=== PATIENT | female | born 1975 | race Caucasian/White ===

== ENCOUNTER 2016-11-20 | Emergency (ER) | payer SELFPAY ==
--- NOTE | 2016-11-20 14:19 | ED ---
General Adult HPI - General Chief complaint: Recheck/Abnormal Lab/Rx Stated complaint: Med Refill Time Seen by Provider: 11/20/16 13:18 Source: patient, RN notes reviewed Mode of arrival: ambulatory Limitations: no limitations - History of Present Illness Initial comments: This is a 41-year-old female who presents for refills of her Depakote and Seroquel. Patient states she follows up with her physician on 11/22/2016 but is going to run out before this appointment. Patient did not contact the office. Patient takes these medications for bipolar disorder. Patient denies any physical symptoms. Patient denies any recent fever, chills, shortness breath , chest pain, abdominal pain, nausea/vomiting/diarrhea, back pain, numbness, tingling, hematuria, headache, or visual changes, or any other complaints. - Related Data Home Medications Medication Instructions Recorded Confirmed Divalproex [Depakote] 250 mg PO QAM 11/20/16 11/20/16 Divalproex [Depakote] 500 mg PO HS 11/20/16 11/20/16 QUEtiapine FUMARATE [SEROquel] 300 mg PO HS 11/20/16 11/20/16 Allergies Allergy/AdvReac Type Severity Reaction Status Date / Time No Known Allergies Allergy Verified 11/20/16 13:28 Review of Systems ROS Statement: Those systems with pertinent positive or pertinent negative responses have been documented in the HPI. ROS Other: All systems not noted in ROS Statement are negative. Past Medical History Past Medical History: No Reported History History of Any Multi-Drug Resistant Organisms: None Reported Past Surgical History: Tonsillectomy Past Psychological History: Bipolar Smoking Status: Never smoker Past Alcohol Use History: None Reported Past Drug Use History: None Reported General Exam - General Exam Comments Initial Comments: General: The patient is awake and alert, in no distress, and does not appear acutely ill. Eye: Pupils are equal, round and reactive to light, extra-ocular movements are intact. No nystagmus. There is normal conjunctiva bilaterally. No signs of icterus. Mouth and throat: There are moist mucous membranes and no oral lesions. Neck: The neck is supple, there is no tenderness or JVD. Cardiovascular: There is a regular rate and rhythm. No murmur, rub or gallop is appreciated. Respiratory: Lungs are clear to auscultation, respirations are non-labored, breath sounds are equal. No wheezes, stridor, rales, or rhonchi. Musculoskeletal: Normal ROM, no tenderness. Strength 5/5. Sensation intact. Radial pulses equal bilaterally 2+. Neurological: A&O x 3. CN II-XII intact, There are no obvious motor or sensory deficits. Coordination appears grossly intact. Speech is normal. Skin: Skin is warm and dry and no rashes or lesions are noted. Psychiatric: Cooperative, appropriate mood & affect, normal judgment. Limitations: no limitations Course Vital Signs 11/20/16 13:03 Temperature 99.3 F Pulse Rate 100 Respiratory 18 Rate Blood Pressure 143/65 O2 Sat by Pulse 98 Oximetry Medical Decision Making - Medical Decision Making This is a 41-year-old female who presents for refills of Depakote and Seroquel. Patient states she follows up with her primary physician on Friday for this but she was afraid to run out of medication before this appointment. Patient did not call the office. I spoke with Dr. Troy's medical historian, [place], who states they have no problem refilling these medications for her today. The medical historian from Dr. Troy's office put in for refills of these medications today and patient is to continue follow-up with her doctor on 2016. I reported this information to the patient stating the continued importance of follow-up with her physician this Friday. Patient was receptive to this plan and patient will be discharged home. Disposition Clinical Impression: Medication refill Disposition: HOME SELF-CARE Condition: Good Instructions: Valproic Acid (By mouth) Additional Instructions: Your medications have been refilled by your doctor's office. Please continue follow-up with your doctor on 11/22/2016. Return to the [facility] for any worsening symptoms or for any further concerns. Time of Disposition: 14:19
== END 2016-11-20 14:30 | disposition home or self-care (01) ==
CPT/HCPCS: 99281

== ENCOUNTER 2020-01-10 12:22 | Emergency (ER) | payer MEDICAID ==
[2020-01-10 12:43] VITALS: TEMP 98.2
[2020-01-10] MEDS ORDERED: SODIUM CHLORIDE 0.9% 1,000 ML IV STA ×3 (13:13→14:19)
[2020-01-10 13:32] LABS: Basophils # (A) 0.1 k/uL (0-0.2); Basophils % (A) 1 %; Eosinophils # (A) 0.2 k/uL (0-0.7); Eosinophils % (A) 3 %; HGB 9.9 gm/dL (11.4-16.0); Lymphocytes # (A) 1.7 k/uL (1.0-4.8); Lymphocytes % (A) 29 %; MCH 29.6 pg (25.0-35.0); MCHC 32.9 g/dL (31.0-37.0); MCV 89.9 fL (80.0-100.0); Mean Platelet Volume 8.9; Monocytes # (A) 0.2 k/uL (0-1.0); Monocytes % (A) 3 %; Neutrophils # (A) 3.7 k/uL (1.3-7.7); Neutrophils % (A) 62 %; Platelet Count 203 k/uL (150-450); RBC 3.34 m/uL (3.80-5.40)
[2020-01-10 13:38] LABS: ALT 38 U/L (4-34); AST 39 U/L (14-36); African American GFR (CKD) >90 (>60 ml/min/1.73 sqM); Albumin 4.2 g/dL (3.5-5.0); Alkaline Phosphatase 39 U/L (38-126); Anion Gap 10 mmol/L; Blood Urea Nitrogen 11 mg/dL (7-17); Calcium 9.4 mg/dL (8.4-10.2); Carbon Dioxide 26 mmol/L (22-30); Chloride 101 mmol/L (98-107); Glucose 147 mg/dL (74-99); Non-African American GFR(CKD) >90 (>60 ml/min/1.73 sqM); Potassium 4.2 mmol/L (3.5-5.1); Sodium 137 mmol/L (137-145); Total Bilirubin 0.1 mg/dL (0.2-1.3); Total Protein 6.6 g/dL (6.3-8.2)
[2020-01-10 13:44] LABS: Appearance,Urine Clear (Clear); Bilirubin,Urine Negative (Negative); Blood,Urine Moderate (Negative); Color,Urine Colorless; Glucose,Urine (UA) Negative (Negative); Ketones,Urine Negative (Negative); Leukocyte Esterase,Urine Negative (Negative); Nitrite,Urine Negative (Negative); PH, Urine 5.5 (5.0-8.0); Protein,Urine Negative (Negative); RBC,Urine <1 /hpf (0-5); Specific Gravity,Urine 1.003 (1.001-1.035); Urobilinogen,Urine <2.0 mg/dL (<2.0); WBC,Urine <1 /hpf (0-5)
--- NOTE | 2020-01-10 14:21 | ED ---
General Adult HPI - General Chief complaint: Dizziness Stated complaint: lightheaded/muscle aches/heavy vag bleeding-clots Time Seen by Provider: 01/10/20 13:08 Source: patient Mode of arrival: ambulatory Limitations: no limitations - History of Present Illness Initial comments: This 44-year-old white female presents with a complaint of some dizziness which is described as a lightheadedness and will occur when she sits or stands. She states that she has had some heavy vaginal bleeding for the past 11 days. It initially was just a moderate but over the last 1-2 days fairly severe and she was passing large clots. She has had some minimal midline lower abdominal pain. She states that she has had irregular periods in the past. She is going thro [facility] early menopause. She states that her periods oftentimes will be fairly severe. She does also have a history of anemia. She follows up with OB but has not seen them recently. She has not had a pelvic ultrasound and a long time. She denies any fevers, chills, nausea, vomiting, or diarrhea. No other complaints or modifying factors. - Related Data Home Medications Medication Instructions Recorded Confirmed Divalproex [Depakote] 250 mg PO QA 11/20/16 11/20/16 Divalproex [Depakote] 500 mg PO HS 11/20/16 11/20/16 QUEtiapine FUMARATE [SEROquel] 300 mg PO HS 11/20/16 11/20/16 Allergies Allergy/AdvReac Type Severity Reaction Status Date / Time No Known Allergies Allergy Verified 01/10/20 12:43 Review of Systems ROS Statement: Those systems with pertinent positive or pertinent negative responses have been documented in the HPI. ROS Other: All systems not noted in ROS Statement are negative. Past Medical History Past Medical History: No Reported History Additional Past Medical History / Comment(s): anemia History of Any Multi-Drug Resistant Organisms: None Reported Past Surgical History: Tonsillectomy Past Psychological History: Bipolar Smoking Status: Never smoker Past Alcohol Use History: None Reported Past Drug Use History: None Reported General Exam - General Exam Comments Initial Comments: GENERAL: The patient is well nourished and well hydrated. VITAL SIGNS: Heart rate, blood pressure, respiratory rate reviewed as recorded in nurse's notes. EYES: Pupils are round and reactive. Extraocular movements are intact. No conjunctival / lid redness or swelling. ENT: No external evidence of injury, swelling, or ecchymosis. Airway is patent. Throat is clear. NECK: Nontender. No swelling or evidence of injury. No subcutaneous emphysema. Trachea is midline. No thyroid mass. HEART: Regular rate and rhythm. Good peripheral pulses. LUNGS/CHEST: Breath sounds clear and equal bilaterally. No rales, rhonchi, or wheezes. No ecchymosis, subcutaneous emphysema, or tenderness. ABDOMEN: There is mild tenderness to the midline lower abdomen. No palpable masses or organomegaly. No peritoneal signs. No abdominal wall swelling or ecchymosis. EXTREMITIES: No extremity tenderness. Normal muscle tone and function. No thoracolumbar tenderness. NEUROLOGIC: Sensation is grossly intact. Cranial nerve exam reveals face is symmetrical, tongue is midline, speech is clear. SKIN: No abrasions or ecchymosis is noted. No induration or masses noted. PSYCHIATRIC: Alert and oriented. Appropriate behavior and judgment. Limitations: no limitations Course Vital Signs 01/10/20 12:40 Temperature 98.2 F Pulse Rate 107 H Respiratory 20 Rate Blood Pressure 130/66 O2 Sat by Pulse 100 Oximetry Medical Decision Making - Medical Decision Making The patient was seen and examined. She was thoroughly hydrated. The blood work did show that the patient has an anemia with a hemoglobin of 9.9. She was 12.9 approximately one year ago. The remainder of labs looked decent. She had an ultrasound of the pelvis and this does show some nabothian cysts otherwise no acute significant process is identified. She likely is symptomatic from her vaginal bleeding. She is requesting a work note. 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 It is felt as though that is reasonable. It is also felt as though she stable for discharge. Return parameters are discussed. OB follow-up is recommended. She states that she was recently given the number of an OB that she is going to schedule an appointment with. She is instructed to avoid aspirin but may take Motrin or Tylenol if needed for her minor lower abdominal cramping. It appears that yesterday was the worst day of bleeding but today it is much better. It seems as though she is improving and she should physiologically be able to improve her hemoglobin without any intervention at this point. - Lab Data Result diagrams: 01/10/20 13:14 01/10/20 13:14 Lab Results 01/10/20 01/10/20 01/10/20 Range/Units 13:14 13:14 13:14 WBC 6.0 (3.8-10.6) k/uL RBC 3.34 L (3.80-5.40) m/uL Hgb 9.9 L (11.4-16.0) gm/dL Hct 30.0 L (34.0-46.0) % MCV 89.9 (80.0-100.0) fL MCH 29.6 (25.0-35.0) pg MCHC 32.9 (31.0-37.0) g/dL RDW 14.0 (11.5-15.5) % Plt Count 203 (150-450) k/uL Neutrophils % 62 % Lymphocytes % 29 % Monocytes % 3 % Eosinophils % 3 % Basophils % 1 % Neutrophils # 3.7 (1.3-7.7) k/uL Lymphocytes # 1.7 (1.0-4.8) k/uL Monocytes # 0.2 (0-1.0) k/uL Eosinophils # 0.2 (0-0.7) k/uL Basophils # 0.1 (0-0.2) k/uL Sodium 137 (137-145) mmol/L Potassium 4.2 (3.5-5.1) mmol/L Chloride 101 (98-107) mmol/L Carbon Dioxide 26 (22-30) mmol/L Anion Gap 10 mmol/L BUN 11 (7-17) mg/dL Creatinine 0.64 (0.52-1.04) mg/dL Est GFR (CKD-EPI)AfAm >90 (>60 ml/min/1.73 sqM) Est GFR (CKD-EPI)NonAf >90 (>60 ml/min/1.73 sqM) Glucose 147 H (74-99) mg/dL Calcium 9.4 (8.4-10.2) mg/dL Total Bilirubin 0.1 L (0.2-1.3) mg/dL AST 39 H (14-36) U/L ALT 38 H (4-34) U/L Alkaline Phosphatase 39 (38-126) U/L Total Protein 6.6 (6.3-8.2) g/dL Albumin 4.2 (3.5-5.0) g/dL Urine Color Urine Appearance (Clear) Urine pH (5.0-8.0) Ur Specific [place] (1.001-1.035) Urine Protein (Negative) Urine Glucose (UA) (Negative) Urine Ketones (Negative) Urine Blood (Negative) Urine Nitrite (Negative) Urine Bilirubin (Negative) Urine Urobilinogen (<2.0) mg/dL Ur Leukocyte Esterase (Negative) Urine RBC (0-5) /hpf Urine WBC (0-5) /hpf Blood Type A Positive Blood Type Recheck No Previous Record Bld Type Recheck Status CABO Indicated Antibody Screen NEGATIVE Spec Expiration Date 01/13/2020 - 231301/10/20 Range/Units 13:34 WBC (3.8-10.6) k/uL RBC (3.80-5.40) m/uL Hgb (11.4-16.0) gm/dL Hct (34.0-46.0) % MCV (80.0-100.0) fL MCH (25.0-35.0) pg MCHC (31.0-37.0) g/dL RDW (11.5-15.5) % Plt Count (150-450) k/uL Neutrophils % % Lymphocytes % % Monocytes % % Eosinophils % % Basophils % % Neutrophils # (1.3-7.7) k/uL Lymphocytes # (1.0-4.8) k/uL Monocytes # (0-1.0) k/uL Eosinophils # (0-0.7) k/uL Basophils # (0-0.2) k/uL Sodium (137-145) mmol/L Potassium (3.5-5.1) mmol/L Chloride (98-107) mmol/L Carbon Dioxide (22-30) mmol/L Anion Gap mmol/L BUN (7-17) mg/dL Creatinine (0.52-1.04) mg/dL Est GFR (CKD-EPI)AfAm (>60 ml/min/1.73 sqM) Est GFR (CKD-EPI)NonAf (>60 ml/min/1.73 sqM) Glucose (74-99) mg/dL Calcium (8.4-10.2) mg/dL Total Bilirubin (0.2-1.3) mg/dL AST (14-36) U/L ALT (4-34) U/L Alkaline Phosphatase (38-126) U/L Total Protein (6.3-8.2) g/dL Albumin (3.5-5.0) g/dL Urine Color Colorless Urine Appearance Clear (Clear) Urine pH 5.5 (5.0-8.0) Ur Specific [place] 1.003 (1.001-1.035) Urine Protein Negative (Negative) Urine Glucose (UA) Negative (Negative) Urine Ketones Negative (Negative) Urine Blood Moderate H (Negative) Urine Nitrite Negative (Negative) Urine Bilirubin Negative (Negative) Urine Urobilinogen <2.0 (<2.0) mg/dL Ur Leukocyte Esterase Negative (Negative) Urine RBC <1 (0-5) /hpf Urine WBC <1 (0-5) /hpf Blood Type Blood Type Recheck Bld Type Recheck Status Antibody Screen Spec Expiration Date Disposition Clinical Impression: Vaginal bleeding, Abdominal pain, Lightheadedness, Anemia, Nabothian cyst Disposition: HOME SELF-CARE Condition: Good Instructions (If sedation given, give patient instructions): Abdominal Pain (ED), Anemia (ED), Dysfunctional Uterine Bleeding (ED) Is patient prescribed a controlled substance at d/c from ED?: No Referrals: Donal Santiago DO [Primary Care Provider] - 1-2 days Time of Disposition: 15:13
[2020-01-10] MEDS ORDERED: KETOROLAC 30 MG/ML 1 ML VIAL IVP STA (14:22)
--- NOTE | 2020-01-10 14:33 | US ---
EXAMINATION TYPE: US transvaginal DATE OF EXAM: 01/10/2020 COMPARISON: NONE CLINICAL HISTORY: vag bleed and pelvic pain. Early menopause per patient; heavy vaginal bleeding with clots x 2 days TECHNIQUE: Transvaginal (TV). Transvaginal sonographic images were medically necessary to better ass ess the following anatomy: endometrium as patient's bladder no full Date of LMP: 12/30/2019 EXAM MEASUREMENTS: Uterus: 8.9 x 6.3 x 4.5 cm Endometrial Stripe: 1.2 cm Right Ovary: 3.7 x 2.6 x 2.7 cm Left Ovary: not seen 1. Uterus: Anteverted; multiple Nabothian Cysts in cervix with largest cyst = 1.4 x 1.2 x 1.1cm 2. Endometrium: Nonenlarged for a premenopausal female. 3. Right Ovary: small follicle seen = 0.8 x 0.8 x 0.6cm 4. Left Ovary: not seen Spectral, color and waveform doppler imaging shows good arterial and venous flow within the right o vary; there is no evidence for ovarian torsion. 5. Bilateral Adnexa: wnl 6. Posterior cul-de-sac: small amount of free fluid noted = 2.5 x 4.4 x 1.2cm. IMPRESSION: 1. Endometrial thickness is nonenlarged for a premenopausal female although would be enlarged for a p ostmenopausal female. 2. Small amount of free fluid in posterior cul-de-sac is likely physiologic in nature.
[2020-01-10 15:25] VITALS: BP 137/81; PULSE 86; RESP 16
== END 2020-01-10 15:24 | disposition home or self-care (01) ==
LOC: EC 12:22
DX: R42 Dizziness and giddiness (principal); D64.9 Anemia, unspecified; R10.30 Lower abdominal pain, unspecified; N88.8 Other specified noninflammatory disorders of cervix uteri; F31.9 Bipolar disorder, unspecified; Z79.899 Other long term (current) drug therapy
CPT/HCPCS: 36415; 86900; 86901; 80053; 85025; 86850; 81001; 84703; 76830; 99284; 96374; 96361 ×2; J1885

== ENCOUNTER → 2020-06-15 | Outpatient (CLI) | payer MEDICAID ==
[2020-06-15 14:54] LABS: HCT 37.7 % (34.0-46.0); Hypochromasia Slight; MCH 28.2 pg (25.0-35.0); MCHC 31.7 g/dL (31.0-37.0); MCV 88.9 fL (80.0-100.0); Mean Platelet Volume 8.8; Platelet Count 212 k/uL (150-450); RBC 4.24 m/uL (3.80-5.40); RDW 15.4 % (11.5-15.5); WBC 6.9 k/uL (3.8-10.6)
[2020-06-15 19:50] LABS: T4, Free (Free Thyroxine) 0.9 ng/dL (0.80-1.80)
== END | disposition home or self-care (01) ==
LOC: LABWHC1 14:14
PROVIDERS: ATTEND Obstetrics & Gynecology
DX: D64.9 Anemia, unspecified (principal); N92.0 Excessive and frequent menstruation with regular cycle
CPT/HCPCS: 36415; 83001; 84439; 84443; 85027

== ENCOUNTER → 2020-10-04 | Outpatient (CLI) | payer OTHER ==
--- NOTE | 2020-10-04 10:29 | XR ---
EXAMINATION TYPE: XR knee complete RT DATE OF EXAM: 10/04/2020 COMPARISON: NONE HISTORY: Right knee pain TECHNIQUE: Three views are submitted. FINDINGS: There is sclerosis along the medial tibial plateau which could be chronic. Recommend a CT scan to exc lude fracture if there is a history of trauma. IMPRESSION: 1. Sclerosis involving the medial tibial plateau could be chronic recommend MRI if there is concern f or subtle fracture. A [place] level critical message alert has been initiated for Dennis Arcos DO via the [employer] Critical Results System on 10/04/2020 10:27 AM. This message alert has been sent to Dennis Arcos DO via the preferences provided by the clinician for the receipt of Radiology Critical Findin gs. Message ID [id number].
== END | disposition home or self-care (01) ==
LOC: RADXRMAIN 09:45
PROVIDERS: ATTEND Emergency Medicine
DX: R29.898 Other symptoms and signs involving the musculoskeletal system (principal)

== ENCOUNTER → 2020-10-09 | Outpatient (CLI) | payer MEDICAID, OTHER ==
--- NOTE | 2020-10-09 13:36 | CT ---
EXAMINATION TYPE: CT knee RT wo con DATE OF EXAM: 10/09/2020 COMPARISON: Recent radiograph 10/04/2020 HISTORY: 45-year-old female right knee pain post pulling injury TECHNIQUE: Contiguous axial scanning of the right knee without IV contrast. Coronal and sagittal glenn nstructions performed. 3-D reconstructions generated on a dedicated workstation. Stenosis is visible suggests a tibial tuberosity CT DLP: 297 mGycm Automated exposure control for dose reduction was used. FINDINGS: There is mild marginal spurring within the patellofemoral compartment. Extensor mechanism is intact. No sizable knee joint effusion. Nonspecific anterior subcutaneous soft tissue swelling. No Salazar's cyst. No acute fracture identified. However, there is suggestion of possible slight extrusion of the body o f the medial meniscus, coronal image 24 and increased density along the anterior margin of the medial tibiofemoral joint, sagittal image 18. IMPRESSION: 1. NO ACUTE FRACTURE IDENTIFIED. 2. HOWEVER, THERE IS SOME INCREASED FOCAL SOFT TISSUE DENSITY ALONG THE ANTERIOR MARGIN OF THE MEDIAL COMPARTMENT AND POSSIBLE SLIGHT EXTRUSION OF THE BODY OF THE MEDIAL MENISCUS. CONSIDER MRI TO EXCLUD E A MEDIAL MENISCUS TEAR OR OTHER OCCULT INJURY.
== END | disposition home or self-care (01) ==
LOC: RADXRMAIN 12:49
PROVIDERS: ATTEND Emergency Medicine
DX: M79.89 Other specified soft tissue disorders (principal); S83.91XD Sprain of unspecified site of right knee, subsequent encounter

== ENCOUNTER → 2020-10-16 | Outpatient (CLI) | payer OTHER ==
--- NOTE | 2020-10-16 16:02 | MR ---
EXAMINATION TYPE: MR knee RT wo con DATE OF EXAM: 10/16/2020 COMPARISON: Right knee x-rays 12 days ago. Right knee CT 7 days ago HISTORY: Rt knee pain, injury 2 weeks ago TECHNIQUE: Multiplanar, multisequence imaging of the right knee is performed without IV contrast. FINDINGS: MEDIAL MENISCUS: Anterior and posterior horns are intact . Corresponding to CT there is extensive cys tic change anterior to the anterior horn medial meniscus. LATERAL MENISCUS: Anterior and posterior horns are intact without tear. CRUCIATE LIGAMENTS: The anterior and posterior cruciate ligaments are intact and unremarkable. COLLATERAL LIGAMENTS: The medial collateral ligament and lateral collateral ligament complex are inta ct and unremarkable. EXTENSOR MECHANISM: Visualized quadriceps and patellar tendons are intact. EFFUSION: No significant suprapatellar joint effusion. POPLITEAL CYST: No popliteal/mckeon cyst. TRICOMPARTMENT SPACES: Mild patellofemoral compartment joint space loss and spurring. CARTILAGE: Tricompartment articular cartilage maintained BONE MARROW SIGNAL: There is 8mm ovoid lesion of low T1 and increased T2 signal posterior distal femo ral metaphysis presumed benign such as enchondroma. OTHER: No additional significant abnormality is appreciated. IMPRESSION: ParaMeniscal cyst formation anterior to the anterior horn medial meniscus likely product of nonvisualized meniscal tear.
== END | disposition home or self-care (01) ==
LOC: RADMRIMAIN 15:06
PROVIDERS: ATTEND Emergency Medicine
DX: M25.861 Other specified joint disorders, right knee (principal)

== ENCOUNTER → 2020-11-08 | Outpatient (CLI) | payer OTHER ==
[2020-11-08 16:11] LABS: Basophils # (A) 0.1 k/uL (0-0.2); Basophils % (A) 1 %; Eosinophils # (A) 0.2 k/uL (0-0.7); Eosinophils % (A) 4 %; HCT 38.3 % (34.0-46.0); HGB 12.7 gm/dL (11.4-16.0); Lymphocytes # (A) 1.8 k/uL (1.0-4.8); Lymphocytes % (A) 30 %; MCH 29.7 pg (25.0-35.0); MCHC 33.1 g/dL (31.0-37.0); MCV 89.7 fL (80.0-100.0); Mean Platelet Volume 8.9; Monocytes # (A) 0.3 k/uL (0-1.0); Monocytes % (A) 5 %; Neutrophils # (A) 3.4 k/uL (1.3-7.7); Neutrophils % (A) 59 %; Platelet Count 199 k/uL (150-450); RBC 4.27 m/uL (3.80-5.40); WBC 5.9 k/uL (3.8-10.6)
[2020-11-08 16:22] LABS: Potassium 4.4 mmol/L (3.5-5.1)
== END | disposition home or self-care (01) ==
LOC: LABPAT 15:51
PROVIDERS: ATTEND Family Medicine
DX: Z01.818 Encounter for other preprocedural examination (principal); M23.91 Unspecified internal derangement of right knee
CPT/HCPCS: 36415; 80051; 85025

== ENCOUNTER 2020-11-15 11:42 | Day surgery (SDC) | payer OTHER, MEDICAID ==
[2020-11-08 15:41] VITALS: BMI 32.6
--- NOTE | 2020-11-15 08:31 | HP ---
HISTORY AND PHYSICAL CHIEF COMPLAINT: Right knee pain. 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 She notes medial pain along with catching and locking. She has tried bracing in addition to medications without much relief. She has been using crutches. Currently, she is off work. She denies previous problems. PAST MEDICAL HISTORY: Significant for bipolar disorder. PAST SURGICAL HISTORY: Negative. CURRENT MEDICATIONS: 1. Depakote. 2. Seroquel. 3. Ibuprofen. 4. Xanax. ALLERGIES: She denies drug allergies. FAMILY HISTORY: Significant for liver disease, diabetes, hemochromatosis. SOCIAL HISTORY: Negative for current tobacco or alcohol use. REVIEW OF SYSTEMS: Sixteen point review of systems otherwise is reviewed and is noncontributory. PHYSICAL EXAMINATION: On examination, the patient is approximately 5 feet 11 inches, 238 pounds of endomorphic habitus. HEENT exam is nonfocal. Neck is supple. She has painless passive motion of the right hip. Straight leg raise is negative. Active motion right knee -8 to 130 degrees of flexion. She has a trace effusion. She is tender about the medial joint line. Collaterals are stable. Candelario is negative, Amanda's elicits medial pain. Her distal neurovascular exam appears intact in the right lower extremity. She does have an antalgic gait pattern. MRI report right knee 10/16/2020 shows an anterior medial meniscal tear along with parameniscal cyst. There is also questionable medial femoral condyle chondral injury. IMPRESSION: 1. Right knee internal derangement with symptomatic medial meniscal tear/parameniscal cyst. 2. Right knee possible chondral injury, distal medial femoral condyle. RECOMMENDATIONS: I talked to the patient at length regarding her condition and treatment options. She remains quite symptomatic, having pain and mechanical symptoms after this acute injury. After thorough discussion, she opts to proceed with surgery. We will plan to proceed with arthroscopic evaluation with possible partial medial meniscectomy in addition to medial femoral chondrectomy. We will likely perform that as an outpatient procedure. Risks and benefits were discussed at length in layman's terms. MMODL / IJN: [id number] /
[~2020-11-15 11:42] MED LIST: DEXAMETHASONE SOD PHOSPHATE 4 MG/ML 1 ML VIAL IV ONE; HYDROmorphone 0.5 MG/0.5 ML SYRINGE IVP PRN; LACTATED RINGERS 1,000 ML IV SCH; ONDANSETRON 4 MG/2 ML VIAL IVP ONE
[2020-11-15 12:27] VITALS: RESP 16
[2020-11-15] MEDS ORDERED: LIDOCAINE 1% (10MG/ML) FOR IV START INTRADERMA ONE (12:30)
[2020-11-15] MEDS ORDERED: LIDOCAINE 1% INJ 10MG/ML (20 ML MDV) ONE (12:41)
[2020-11-15] MEDS ORDERED: PROPOFOL 10 MG/ML 20 ML VIAL IV ONE (12:41)
[2020-11-15] MEDS ORDERED: MIDAZOLAM 2 MG/2 ML VIAL ONE (12:41)
[2020-11-15] MEDS ORDERED: fentaNYL (PF) 50 MCG/ML 2 ML AMP ONE (12:41)
--- NOTE | 2020-11-15 13:31 | P.OP ---
Date of Procedure: 11/15/20 Preoperative Diagnosis: Right knee internal derangement Postoperative Diagnosis: Right knee anterior horn medial meniscal tear/grade 3 chondral injury distal medial portion medial femoral condyle Procedure(s) Performed: Right knee arthroscopic partial medial meniscectomy/medial femoral chondrectomy Anesthesia: JOA Surgeon: Haseeb Rivera Estimated Blood Loss (ml): 10 Pathology: none sent Condition: stable Disposition: PACU Indications for Procedure: The patient's a 45-year-old female who presents with progressive right knee pain and mechanical symptoms after a previous injury. A discussion of the risks and benefits of operative intervention versus continued conservative measures was made with patient. She opted to proceed with surgery. Operative risks to include infection, neurovascular injury, development of blood clots, possible incomplete resolution of symptoms, possible worsening symptoms and need for subsequent procedures was discussed. Informed consent was obtained. Operative Findings: As below Description of Procedure: The patient was brought to the operating room, and after induction of general anesthesia examined the right knee. Collaterals were stable, Candelario was negative, and posterior drawer was negative. The right lower extremity was prepped and draped in a normal fashion. A superior lateral portal was made through a 3 mm skin incision superior and lateral to the patella. This was used for outflow. A lateral portal was made through a 5 mm vertical skin incision lateral to the patella tendon above the joint line. Diagnostic arthroscopy was performed. On inspection of the medial compartment, and oblique tear involving the anterior horn of the medial meniscus in the white-white junction was noted. This was debrided back to stable base with a motorized shaver. The remaining medial meniscus was stable and intact. Grade 2 chondral changes were noted diffusely along the distal medial femoral condyle with a small grade 3 chondral flap involving the medial aspect the medial femoral condyle. This was debrided back to stable base with a motorized shaver. On inspection of the notch, the anterior cruciate ligament appeared to be intact. On inspection of the lateral compartment, no significant meniscal or cartilage pathology was noted. On inspection of the patellofemoral articulation, there were grade 2 chondral changes involving the lateral patella facet. The gutters were clear debris. The knee was then thoroughly irrigated. The portals were closed with Steri- Strips. A sterile dressing was applied in addition to a compression stocking. The patient was awoken from general anesthesia and transferred to recovery room in good condition. Blood loss was estimated at 10 mL. No complications were incurred.
[2020-11-15 13:36] VITALS: TEMP 97.8
[2020-11-15] MEDS: HYDROmorphone 1 MG/ML 1 ML SYRINGE IVP ONE ×2 (13:51→13:58)
[2020-11-15] MEDS ORDERED: KETOROLAC 15 MG/ML 1 ML VIAL IVP ONE (13:53)
[2020-11-15] MEDS ORDERED: HYDROcodone/APAP 7.5-325MG 1 EACH TAB ONE (14:49)
[2020-11-15] MEDS ORDERED: HYDROcodone/APAP 7.5-325MG 1 EACH TAB PO ONE (14:50)
[2020-11-15 15:35] VITALS: BP 112/70; PULSE 74
== END 2020-11-15 16:30 | disposition home or self-care (01) ==
LOC: OR 11:42
PROVIDERS: ATTEND Orthopaedic Surgery
DX: S83.241A Other tear of medial meniscus, current injury, right knee, initial encounter (principal); S89.81XA Other specified injuries of right lower leg, initial encounter; F31.9 Bipolar disorder, unspecified; G43.909 Migraine, unspecified, not intractable, without status migrainosus; Z79.899 Other long term (current) drug therapy; Z79.1 Long term (current) use of non-steroidal anti-inflammatories (NSAID); Z83.79 Family history of other diseases of the digestive system; Z83.3 Family history of diabetes mellitus; Z83.49 Family history of other endocrine, nutritional and metabolic diseases; X58.XXXA Exposure to other specified factors, initial encounter
CPT/HCPCS: 81025; 29881; J2250; J1100; J0690; J2405; J2001; J3010; J1170; J1885; J2704

== ENCOUNTER 2021-01-09 07:33 | Emergency (ER) | payer MEDICAID, OTHER ==
[2021-01-09 07:37] VITALS: BP 166/89; PULSE 103; RESP 18; TEMP 98.8
--- NOTE | 2021-01-09 08:01 | ED ---
General Adult HPI - General Chief complaint: Recheck/Abnormal Lab/Rx Stated complaint: neck & arm swelling Time Seen by Provider: 01/09/21 07:36 Source: patient Mode of arrival: ambulatory Limitations: no limitations - History of Present Illness Initial comments: Dictation was produced using [employer] dictation software. please excuse any grammatical, word or spelling errors. This patient was cared for during a federal and state declared state of emergency secondary to Covid 19 Chief Complaint: 45-year-old female past medical history of bipolar disease, and migraines presents to the emergency department for a month and a half of left neck swelling, left under arm swelling, swallowing difficulties and changes in her voice History of Present Illness: Patient is a 45-year-old female she states that she's been having these symptoms for a month and a half. 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 She states she has not worked since September. Last night was her first shift in 3 months. States over the last month and half she's been developing to her noticeable left neck swelling, difficulty breathing versus a distended abdomen. Patient has family history of hemachromatosis and her mother suffered from liver disease secondary to hemochromatosis. Patient has not addresses with her primary care physician. She states she does not like her PCP and wants change. While at work she became anxious about her symptoms prompted her to come to the emergency department. Patient is been taking a gram of Tylenol daily for several days. She has not taken more than recommended amounts. The ROS documented in this emergency department record has been reviewed and confirmed by me. Those systems with pertinent positive or negative responses have been documented in the HPI. All other systems are other negative and/or noncontributory. PHYSICAL EXAM: General Impression: Alert and oriented x3, not in acute distress HEENT: Normocephalic atraumatic, extra-ocular movements intact, pupils equal and reactive to light bilaterally, mucous membranes moist, no dysphonia, mild bogginess to the superior insertion of the sternocleidomastoid on the left side compared to the right, no appreciable voice hoarseness, patient not drooling or showing signs of respiratory distress Cardiovascular: Heart regular rate and rhythm Chest: Able to complete full sentences, no retractions, no tachypnea Left breast: No appreciable palpable back breast mass, there is a mass stents in the left axilla that appears to be symmetric on the right axilla., Right and left upper extremity are symmetrical. Abdomen: abdomen soft, non-tender, non-distended, no organomegaly Musculoskeletal: Pulses present and equal in all extremities, no peripheral edema Motor: no focal deficits noted Neurological: CN II-XII grossly intact, no focal motor or sensory deficits noted Skin: Intact with no visualized rashes Psych: Normal affect and mood ED course: 45-year-old female presents with multiple complaints. States that her primary complaints are left neck swelling, hoarseness, difficulty breathing and concerns of possible Tylenol overdose. Patient's physical examination is completely benign. Her vital signs are within acceptable limits. Plantar ultrasound was performed showing no free fluid in the abdomen. No appreciable mass on ultrasound of the left neck. Left axilla, left extremity and left lateral breast examination is benign. At this point patient's physical examination is benign, there is abnormal palpatory masses in the armpit and possibly even the upper neck. Is unclear what these findings represent. Symptoms have been progressive for the last 6 weeks. Discussed with patient that her symptoms of axillary mass, neck mass and symptoms could be signs of neoplastic masses. She is told to follow-up with a primary care physician for outpatient management. - Related Data Home Medications Medication Instructions Recorded Confirmed Divalproex [Depakote] 250 mg PO DAILY 11/20/16 01/09/21 Divalproex [Depakote] 500 mg PO HS 11/20/16 01/09/21 ALPRAZolam [Xanax] 0.5 mg PO HS 11/08/20 01/09/21 Ibuprofen [Motrin Ib] 600 - 800 mg PO Q6H PRN 11/08/20 01/09/21 Multivit with Calcium,Iron,Min 1 tab PO DAILY 11/08/20 01/09/21 [Women's Multivitamin] Acetaminophen Tab [Tylenol Tab] 1,000 mg PO Q6HR PRN 01/09/21 01/09/21 QUEtiapine [SEROquel] 200 mg PO HS 01/09/21 01/09/21 Allergies Allergy/AdvReac Type Severity Reaction Status Date / Time No Known Allergies Allergy Verified 01/09/21 08:14 Review of Systems ROS Statement: Those systems with pertinent positive or pertinent negative responses have been documented in the HPI. ROS Other: All systems not noted in ROS Statement are negative. Past Medical History Past Medical History: No Reported History Additional Past Medical History / Comment(s): migraines, pain right knee. History of Any Multi-Drug Resistant Organisms: None Reported Past Surgical History: Tonsillectomy Additional Past Surgical History / Comment(s): tonsillectomy (teenager) Past Anesthesia/Blood Transfusion Reactions: No Reported Reaction Past Psychological History: Anxiety, Bipolar Smoking Status: Never smoker Past Alcohol Use History: None Reported Past Drug Use History: None Reported - Past Family History Mother Family Medical History: No Reported History General Exam Limitations: no limitations Course Vital Signs 01/09/21 07:34 Temperature 98.8 F Pulse Rate 103 H Respiratory 18 Rate Blood Pressure 166/89 O2 Sat by Pulse 100 Oximetry Medical Decision Making - Lab Data Result diagrams: 01/09/21 08:01 01/09/21 08:01 Lab Results 01/09/21 01/09/21 01/09/21 Range/Units 08:01 08:01 08:01 WBC 6.9 (3.8-10.6) k/uL RBC 4.27 (3.80-5.40) m/uL Hgb 12.4 (11.4-16.0) gm/dL Hct 38.3 (34.0-46.0) % MCV 89.8 (80.0-100.0) fL MCH 29.1 (25.0-35.0) pg MCHC 32.4 (31.0-37.0) g/dL RDW 14.6 (11.5-15.5) % Plt Count 252 (150-450) k/uL MPV 8.3 Neutrophils % 62 % Lymphocytes % 27 % Monocytes % 4 % Eosinophils % 3 % Basophils % 1 % Neutrophils # 4.3 (1.3-7.7) k/uL Lymphocytes # 1.9 (1.0-4.8) k/uL Monocytes # 0.3 (0-1.0) k/uL Eosinophils # 0.2 (0-0.7) k/uL Basophils # 0.1 (0-0.2) k/uL PT 10.3 (9.0-12.0) sec INR 1.0 (<1.2) APTT 22.9 (22.0-30.0) sec Sodium 139 (137-145) mmol/L Potassium 4.4 (3.5-5.1) mmol/L Chloride 98 (98-107) mmol/L Carbon Dioxide 29 (22-30) mmol/L Anion Gap 12 mmol/L BUN 13 (7-17) mg/dL Creatinine 0.68 (0.52-1.04) mg/dL Est GFR (CKD-EPI)AfAm >90 (>60 ml/min/1.73 sqM) Est GFR (CKD-EPI)NonAf >90 (>60 ml/min/1.73 sqM) Glucose 120 H (74-99) mg/dL Plasma Lactic Acid Waqar (0.7-2.0) mmol/L Calcium 10.1 (8.4-10.2) mg/dL Magnesium 1.9 (1.6-2.3) mg/dL Total Bilirubin 0.4 (0.2-1.3) mg/dL AST 68 H (14-36) U/L ALT 81 H (4-34) U/L Alkaline Phosphatase 52 (38-126) U/L Total Protein 7.9 (6.3-8.2) g/dL Albumin 4.9 (3.5-5.0) g/dL Lipase 165 (23-300) U/L TSH 3.860 (0.465-4.680) mIU/L Acetaminophen <10.0 ug/mL 01/09/21 Range/Units 08:01 WBC (3.8-10.6) k/uL RBC (3.80-5.40) m/uL Hgb (11.4-16.0) gm/dL Hct (34.0-46.0) % MCV (80.0-100.0) fL MCH (25.0-35.0) pg MCHC (31.0-37.0) g/dL RDW (11.5-15.5) % Plt Count (150-450) k/uL MPV Neutrophils % % Lymphocytes % % Monocytes % % Eosinophils % % Basophils % % Neutrophils # (1.3-7.7) k/uL Lymphocytes # (1.0-4.8) k/uL Monocytes # (0-1.0) k/uL Eosinophils # (0-0.7) k/uL Basophils # (0-0.2) k/uL PT (9.0-12.0) sec INR (<1.2) APTT (22.0-30.0) sec Sodium (137-145) mmol/L Potassium (3.5-5.1) mmol/L Chloride (98-107) mmol/L Carbon Dioxide (22-30) mmol/L Anion Gap mmol/L BUN (7-17) mg/dL Creatinine (0.52-1.04) mg/dL Est GFR (CKD-EPI)AfAm (>60 ml/min/1.73 sqM) Est GFR (CKD-EPI)NonAf (>60 ml/min/1.73 sqM) Glucose (74-99) mg/dL Plasma Lactic Acid Waqar 1.1 (0.7-2.0) mmol/L Calcium (8.4-10.2) mg/dL Magnesium (1.6-2.3) mg/dL Total Bilirubin (0.2-1.3) mg/dL AST (14-36) U/L ALT (4-34) U/L Alkaline Phosphatase (38-126) U/L Total Protein (6.3-8.2) g/dL Albumin (3.5-5.0) g/dL Lipase (23-300) U/L TSH (0.465-4.680) mIU/L Acetaminophen ug/mL Disposition Clinical Impression: Neck mass, Axillary mass Disposition: HOME SELF-CARE Condition: Good Additional Instructions: Follow-up with ENT or primary care physician for outpatient management of neck mass and axillary mass. This point is unclear what these masses represent however need to be further evaluated on an outpatient basis. Seek medical attention with any worsening symptoms. Is patient prescribed a controlled substance at d/c from ED?: No Referrals: Donal Santiago DO [Primary Care Provider] - 1-2 days Troy Silva MD [STAFF PHYSICIAN] - 1-2 days Time of Disposition: 09:13
[2021-01-09 08:34] LABS: ALT 81 U/L (4-34); AST 68 U/L (14-36); Acetaminophen <10.0 ug/mL; African American GFR (CKD) >90 (>60 ml/min/1.73 sqM); Albumin 4.9 g/dL (3.5-5.0); Alkaline Phosphatase 52 U/L (38-126); Anion Gap 12 mmol/L; Blood Urea Nitrogen 13 mg/dL (7-17); Calcium 10.1 mg/dL (8.4-10.2); Carbon Dioxide 29 mmol/L (22-30); Chloride 98 mmol/L (98-107); Glucose 120 mg/dL (74-99); Lipase 165 U/L (23-300); Magnesium 1.9 mg/dL (1.6-2.3); Non-African American GFR(CKD) >90 (>60 ml/min/1.73 sqM); Potassium 4.4 mmol/L (3.5-5.1); Sodium 139 mmol/L (137-145); Total Bilirubin 0.4 mg/dL (0.2-1.3); Total Protein 7.9 g/dL (6.3-8.2)
[2021-01-09 08:35] LABS: Partial Thromboplastin Time 22.9 sec (22.0-30.0); Prothrombin Time 10.3 sec (9.0-12.0)
[2021-01-09 08:49] LABS: Basophils # (A) 0.1 k/uL (0-0.2); Basophils % (A) 1 %; Eosinophils # (A) 0.2 k/uL (0-0.7); Eosinophils % (A) 3 %; HCT 38.3 % (34.0-46.0); HGB 12.4 gm/dL (11.4-16.0); Lymphocytes # (A) 1.9 k/uL (1.0-4.8); Lymphocytes % (A) 27 %; MCH 29.1 pg (25.0-35.0); MCHC 32.4 g/dL (31.0-37.0); MCV 89.8 fL (80.0-100.0); Mean Platelet Volume 8.3; Monocytes # (A) 0.3 k/uL (0-1.0); Monocytes % (A) 4 %; Neutrophils # (A) 4.3 k/uL (1.3-7.7); Neutrophils % (A) 62 %; Platelet Count 252 k/uL (150-450); RBC 4.27 m/uL (3.80-5.40); RDW 14.6 % (11.5-15.5); WBC 6.9 k/uL (3.8-10.6)
--- NOTE | 2021-01-09 09:56 | CT ---
EXAMINATION TYPE: CT soft tissue neck w con DATE OF EXAM: 01/09/2021 9:39 AM COMPARISON: HISTORY: left side submandibular neck swelling CT DLP: 360.5 mGycm Automated exposure control for dose reduction was used. CONTRAST: CT scan of the neck is performed following with IV Contrast, patient injected with 100 mL of Isovue 3 00. Axial images are obtained, coronal and sagittal reformatted images are reviewed. FINDINGS: There is no overlying marker at the site of patient's neck mass. Airway: No gross abnormality seen. Parotid/submandibular glands: No gross abnormality seen. Shotty nodes are present in the submandibul ar location. Carotid/Vascular Structures: Normal Osseous Structures: Normal Other: Shotty nodes present in the supraclavicular location. Minimal dependent atelectatic changes ar e present in the upper lobes. Borderline enlarged node suspected in the retrocaval pretracheal medias tinum measuring 11 mm short axis IMPRESSION: Borderline enlarged mediastinal node is questioned. Additional findings above.
--- NOTE | 2021-01-09 10:16 | ED ---
Medical Decision Making - Lab Data Result diagrams: 01/09/21 08:01 01/09/21 08:01 Lab Results 01/09/21 01/09/21 01/09/21 Range/Units 08:01 08:01 08:01 WBC 6.9 (3.8-10.6) k/uL RBC 4.27 (3.80-5.40) m/uL Hgb 12.4 (11.4-16.0) gm/dL Hct 38.3 (34.0-46.0) % MCV 89.8 (80.0-100.0) fL MCH 29.1 (25.0-35.0) pg MCHC 32.4 (31.0-37.0) g/dL RDW 14.6 (11.5-15.5) % Plt Count 252 (150-450) k/uL MPV 8.3 Neutrophils % 62 % Lymphocytes % 27 % Monocytes % 4 % Eosinophils % 3 % Basophils % 1 % Neutrophils # 4.3 (1.3-7.7) k/uL Lymphocytes # 1.9 (1.0-4.8) k/uL Monocytes # 0.3 (0-1.0) k/uL Eosinophils # 0.2 (0-0.7) k/uL Basophils # 0.1 (0-0.2) k/uL PT 10.3 (9.0-12.0) sec INR 1.0 (<1.2) APTT 22.9 (22.0-30.0) sec Sodium 139 (137-145) mmol/L Potassium 4.4 (3.5-5.1) mmol/L Chloride 98 (98-107) mmol/L Carbon Dioxide 29 (22-30) mmol/L Anion Gap 12 mmol/L BUN 13 (7-17) mg/dL Creatinine 0.68 (0.52-1.04) mg/dL Est GFR (CKD-EPI)AfAm >90 (>60 ml/min/1.73 sqM) Est GFR (CKD-EPI)NonAf >90 (>60 ml/min/1.73 sqM) Glucose 120 H (74-99) mg/dL Plasma Lactic Acid Waqar (0.7-2.0) mmol/L Calcium 10.1 (8.4-10.2) mg/dL Magnesium 1.9 (1.6-2.3) mg/dL Total Bilirubin 0.4 (0.2-1.3) mg/dL AST 68 H (14-36) U/L ALT 81 H (4-34) U/L Alkaline Phosphatase 52 (38-126) U/L Total Protein 7.9 (6.3-8.2) g/dL Albumin 4.9 (3.5-5.0) g/dL Lipase 165 (23-300) U/L TSH 3.860 (0.465-4.680) mIU/L Acetaminophen <10.0 ug/mL 01/09/21 Range/Units 08:01 WBC (3.8-10.6) k/uL RBC (3.80-5.40) m/uL Hgb (11.4-16.0) gm/dL Hct (34.0-46.0) % MCV (80.0-100.0) fL MCH (25.0-35.0) pg MCHC (31.0-37.0) g/dL RDW (11.5-15.5) % Plt Count (150-450) k/uL MPV Neutrophils % % Lymphocytes % % Monocytes % % Eosinophils % % Basophils % % Neutrophils # (1.3-7.7) k/uL Lymphocytes # (1.0-4.8) k/uL Monocytes # (0-1.0) k/uL Eosinophils # (0-0.7) k/uL Basophils # (0-0.2) k/uL PT (9.0-12.0) sec INR (<1.2) APTT (22.0-30.0) sec Sodium (137-145) mmol/L Potassium (3.5-5.1) mmol/L Chloride (98-107) mmol/L Carbon Dioxide (22-30) mmol/L Anion Gap mmol/L BUN (7-17) mg/dL Creatinine (0.52-1.04) mg/dL Est GFR (CKD-EPI)AfAm (>60 ml/min/1.73 sqM) Est GFR (CKD-EPI)NonAf (>60 ml/min/1.73 sqM) Glucose (74-99) mg/dL Plasma Lactic Acid Waqar 1.1 (0.7-2.0) mmol/L Calcium (8.4-10.2) mg/dL Magnesium (1.6-2.3) mg/dL Total Bilirubin (0.2-1.3) mg/dL AST (14-36) U/L ALT (4-34) U/L Alkaline Phosphatase (38-126) U/L Total Protein (6.3-8.2) g/dL Albumin (3.5-5.0) g/dL Lipase (23-300) U/L TSH (0.465-4.680) mIU/L Acetaminophen ug/mL Disposition Clinical Impression: Neck mass, Axillary mass Disposition: HOME SELF-CARE Condition: Good Instructions (If sedation given, give patient instructions): Lymphadenopathy (ED) Additional Instructions: Follow-up with ENT or primary care physician for outpatient management of neck mass and axillary mass. This point is unclear what these masses represent however need to be further evaluated on an outpatient basis. Seek medical attention with any worsening symptoms. Is patient prescribed a controlled substance at d/c from ED?: No Referrals: Donal Santiago DO [Primary Care Provider] - 1-2 days Troy Silva MD [STAFF PHYSICIAN] - 1-2 days Time of Disposition: 10:16
== END 2021-01-09 10:47 | disposition home or self-care (01) ==
LOC: EC 07:33
DX: R22.1 Localized swelling, mass and lump, neck (principal); F31.9 Bipolar disorder, unspecified; F41.9 Anxiety disorder, unspecified
CPT/HCPCS: 36415; 93005; 80053; 83605; 83690; 83735; 84436; 84443; 85025; 85610; 85730; 80143; 70491; 99284; Q9967

== ENCOUNTER → 2021-01-17 | Outpatient (CLI) | payer MEDICAID ==
[2021-01-18 01:13] LABS: Thyroid Peroxidase Antibodies 32.3 U/mL (0.0-60.0)
[2021-01-18 15:36] LABS: Alt. alternata IgE Class CLASS 0; Alternaria alternata IgE <0.10 kU/L (<0.10); Asperg. fumagatus IgE <0.10 kU/L (<0.10); Asperg. fumagatus IgE Class CLASS 0; Aureo. pullulans IgE <0.10 kU/L (<0.10); Aureo. pullulans IgE Class CLASS 0; Birch(Com.Silvr) IgE <0.10 kU/L (<0.10); Birch(Com.Silvr) IgE Class CLASS 0; Candida albicans IgE Class CLASS 0; Cat Epith & Dander IgE <0.10 kU/L (<0.10); Cat Epith & Dander IgE Class CLASS 0; Clad herbarum IgE <0.10 kU/L (<0.10); Clad herbarum IgE Class CLASS 0; Cockroach IgE <0.10 kU/L (<0.10); Com. Pigweed IgE <0.10 kU/L (<0.10); Com. Pigweed IgE Class CLASS 0; Cottonwood IgE <0.10 kU/L (<0.10); Dermato. Pteronyssinus Class CLASS 0; Dermato. Pteronyssinus IgE <0.10 kU/L (<0.10); Dermato. farinae IgE <0.10 kU/L (<0.10); Dermato. farinae IgE Class CLASS 0; Dog Dander IgE <0.10 kU/L (<0.10); English Plantain IgE Class CLASS 0; Epicoccum purpurascens Class CLASS 0; Epicoccum purpurascens IgE <0.10 kU/L (<0.10); Johnson Grass IgE Class CLASS 0; Lamb's Quarter IgE <0.10 kU/L (<0.10); Lamb's Quarter IgE Class CLASS 0; Maple (Box Elder) IgE <0.10 kU/L (<0.10); Maple (Box Elder) IgE Class CLASS 0; Mucor racemosus IgE <0.10 kU/L (<0.10); Mucor racemosus IgE Class CLASS 0; Oak IgE <0.10 kU/L (<0.10); Rhizopus nigricans IgE <0.10 kU/L (<0.10); Rhizopus nigricans IgE Class CLASS 0; S.rostrata/Helminth Class CLASS 0; S.rostrata/Helminth IgE <0.10 kU/L (<0.10); Sycamore(Mpl.Lf) IgE <0.10 kU/L (<0.10); Sycamore(Mpl.Lf) IgE Class CLASS 0; Timothy Grass IgE <0.10 kU/L (<0.10); Timothy Grass IgE Class CLASS 0; Walnut Tree IgE <0.10 kU/L (<0.10); Walnut Tree IgE Class CLASS 0; White Ash IgE Class CLASS 0
[2021-01-20 01:19] LABS: Peanut IgG 3.8 mcg/mL (< 2.0); Soybean IgG 3.1 mcg/mL (< 2.0); Tomato IgG 3.9 mcg/mL (< 2.0)
[2021-01-20 01:20] LABS: Chicken Meat IgG 2.7 mcg/mL (< 2.0); Pork IgG 4.4 mcg/mL (< 2.0); Wheat IgG 12.2 mcg/mL (< 2.0)
[2021-01-20 01:21] LABS: Corn IgG 5.4 mcg/mL (< 2.0)
== END | disposition home or self-care (01) ==
LOC: LABWHC1 07:44
PROVIDERS: ATTEND Otolaryngology
DX: E06.9 Thyroiditis, unspecified (principal); J30.89 Other allergic rhinitis
CPT/HCPCS: 36415; 86001; 86003; 86376; 86800

== ENCOUNTER → 2021-11-08 | Outpatient (CLI) | payer MEDICAID ==
--- NOTE | 2021-11-12 12:45 | MM ---
Reason for exam: screening (asymptomatic). Last mammogram was performed 6 years and 5 months ago. History: Patient is postmenopausal and had first child at age 32. Retro-pectoral saline implants in both breasts, 2008. Physical Findings: A clinical breast exam by your physician is recommended on an annual basis and results should be correlated with mammographic findings. MG 3D Screen Mammo Imp/Cad Bilateral CC, MLO, and ID view(s) were taken. Prior study comparison: May 30, 2015, mammogram, performed at [facility]. There are scattered fibroglandular densities. There are benign appearing round calcifications bilaterally. There is no discrete abnormality. Bilateral subpectoral implants redemonstrated. ASSESSMENT: Benign, BI-RAD 2 RECOMMENDATION: Routine screening mammogram of both breasts in 1 year.
== END | disposition home or self-care (01) ==
LOC: RADMAMWWP 12:59
PROVIDERS: ATTEND Obstetrics & Gynecology
DX: Z12.31 Encounter for screening mammogram for malignant neoplasm of breast (principal); Z78.0 Asymptomatic menopausal state
CPT/HCPCS: 77063; 77067

== ENCOUNTER → 2022-03-20 | Outpatient (CLI) | payer MEDICAID ==
--- NOTE | 2022-03-21 04:27 | MR ---
EXAMINATION TYPE: MR wrist RT wo con DATE OF EXAM: 03/20/2022 COMPARISON: None HISTORY: No prior, work related pulling injury, pain, swelling fluid in joint Multiplanar multiecho imaging of the right wrist without contrast. The carpal bones are intact. Intercarpal joint spaces are fairly normal. The triangular cartilage gabby ears intact. There is 6 mm cyst on the dorsum of the carpus posterior to the capitate lunate joint an d consistent with degenerative cyst. There is also some fluid posterior to the lateral aspect of the capitate and consistent with additional small degenerative cysts. There is no evidence of a fracture. The flexor and extensor tendons appear intact. The proximal metacarpals appear intact. Distal radius and ulna appear intact. There is developmentally short ulna. IMPRESSION: No fracture. No evidence of ligament or tendon tear. Degenerative cyst formation on the dorsum of the carpus. Small wrist joint effusion with fluid accumulation seen on the dorsum of the scaphoid.
== END | disposition home or self-care (01) ==
LOC: RADMRIMAIN 19:42
PROVIDERS: ATTEND Orthopaedic Surgery
DX: M25.431 Effusion, right wrist (principal); M85.641 Other cyst of bone, right hand

== ENCOUNTER → 2023-06-20 | Outpatient (CLI) | payer MEDICAID ==
--- NOTE | 2023-06-20 11:30 | CA ---
Transthoracic Echo Report Name: Selin Salamanca Age: 47 Gender: F : 1975 Exam Date: 06/20/2023 10:59 Exam Location: [facility] Ht (in): 71 Wt (lb): 230 Ordering Physician: Vinicio Garcia MD Attending/Referring Phys: Accident Report Clerk Taty Devries [facility] Procedure CPT: Indications: R006 Cardiac Hx: Technical Quality: Fair Contrast 1: Total Dose (mL): Contrast 2: Total Dose (mL): MEASUREMENTS (Male / Female) Normal Values 2D ECHO LV Diastolic Diameter PLAX 5.0 cm 4.2 - 5.9 / 3.9 - 5.3 cm LV Systolic Diameter PLAX 3.4 cm IVS Diastolic Thickness 1.0 cm 0.6 - 1.0 / 0.6 - 0.9 cm LVPW Diastolic Thickness 0.9 cm 0.6 - 1.0 / 0.6 - 0.9 cm LV Relative Wall Thickness 0.4 Ascending Aorta Diameter 2.8 cm M-MODE Aortic Root Diameter MM 2.8 cm LA Systolic Diameter MM 4.1 cm LA Ao Ratio MM 1.5 AV Cusp Separation MM 2.3 cm DOPPLER AV Peak Velocity 106.0 cm/s AV Peak Gradient 4.5 mmHg AV Mean Velocity 85.2 cm/s AV Mean Gradient 3.1 mmHg AV Velocity Time Integral 20.1 cm LVOT Peak Velocity 85.5 cm/s LVOT Peak Gradient 2.9 mmHg LVOT Velocity Time Integral 17.5 cm Mitral E Point Velocity 58.1 cm/s Mitral A Point Velocity 43.6 cm/s Mitral E to A Ratio 1.3 MV Deceleration Time 232.8 ms LV E' Lateral Velocity 9.5 cm/s Mitral E to LV E' Lateral Ratio 6.1 LV E' Septal Velocity 10.7 cm/s Mitral E to LV E' Septal Ratio 5.4 Right Atrial Pressure 8.0 mmHg FINDINGS Left Ventricle Normal Left ventricular size, wall thickness, systolic function with no obvious regional wall motion abnormalities. Left ventricular ejection fraction is estimated at 55-60%. Right Ventricle Right ventricle at upper limits of normal. Unable to estimate the right ventricular systolic pressure. Right Atrium Normal right atrial size. Left Atrium Moderate left atrial dilatation. Mitral Valve Structurally normal mitral valve. Trace mitral regurgitation. Aortic Valve Trileaflet aortic valve. No aortic valve stenosis or regurgitation. Tricuspid Valve Structurally normal tricuspid valve. Trace tricuspid regurgitation. Pulmonic Valve Structurally normal pulmonic valve. No pulmonic regurgitation. Pericardium Minimal pericardial effusion (normal variant). Aorta Normal size aortic root and proximal ascending aorta. CONCLUSIONS Normal LV systolic function Previewed by: Dr. Cj Mclaughlin MD (Electronically Signed) Final Date: 20 June 2023 11:29
--- NOTE | 2023-06-20 11:34 | CA ---
Stress Echo Report Selin Salamanca Age: 47 Gender: F : 1975 Exam Date: 06/20/2023 10:16 Exam Location: [facility] Ht (in): 71 Wt (lb): 230 Ordering Physician: Vinicio Garcia MD ([id number]) Referring Physician: VINICIO GARCIA,, Patient Support Specialist: GALEN,, Technologist Procedure CPT: Indication: R00.2 ICD-9 Codes: Rhythm: Patient History: Cardiac workup Cardiac Medications: Medications in past 24 hours: Contrast: Stress Results Protocol: Kyaw Total dose(mL): Exercise Duration (min:sec): 7:[address] Depression (mm): Angina Score: Hampton Score: METS: 8.7 Resting HR: 78 Resting BP: 140 / 72 Peak HR: 171 Peak BP: 209 / 63 Max Predicted HR: 173 99 % Max Predicted HR Target HR: 147 Double Product: 21047 Stress Summary: BP Response: Reason for Termination: MAX EXERTION/TARGET HR Cardiac Symptoms: NO SYMPTOMS ECG Analysis Resting ECG: Normal sinus rhythm normal lites normal intervals Stress ECG: Patient exercised on Kyaw protocol for 7 minutes achieving 85% of predicted maximal heart rate without chest pain or diagnostic ST segment depression Arrhythmia: Echo Analysis Resting Echo: Normal left ventricle a size wall motion systolic function Peak Echo Analysis: Normal hyperdynamic response was of myocardium noted MEASUREMENTS (Male/Female) Normal Values CONCLUSIONS Average excise tolerance Negative stress test by EKG criteria Negative stress echo Dr. Cj Mclaughlin MD (Electronically Signed) Final Date: 20 June 2023 11:33
== END | disposition home or self-care (01) ==
LOC: RADNMMAIN 10:02
PROVIDERS: ATTEND Internal Medicine Interventional Cardiology
DX: R00.2 Palpitations (principal)
CPT/HCPCS: 93306; 93351

== ENCOUNTER → 2023-11-05 | Outpatient (CLI) | payer MEDICAID ==
[2023-11-05 23:19] LABS: T4, Free (Free Thyroxine) 0.9 ng/dL (0.80-1.80)
== END | disposition home or self-care (01) ==
LOC: LABWHC1 13:21
PROVIDERS: ATTEND Internal Medicine Interventional Cardiology
DX: I48.91 Unspecified atrial fibrillation (principal); E83.42 Hypomagnesemia; E11.22 Type 2 diabetes mellitus with diabetic chronic kidney disease; N18.31 Chronic kidney disease, stage 3a
CPT/HCPCS: 36415; 84439; 84443

== ENCOUNTER → 2024-03-10 | Outpatient (CLI) | payer OTHER | END | disposition home or self-care (01) | LOC: LABWHC1 13:51 | PROVIDERS: ATTEND Psychiatry & Neurology Psychiatry | DX: F31.2 Bipolar disorder, current episode manic severe with psychotic features (principal) | CPT/HCPCS: 36415; 80164 ==